=== PATIENT | male | born 1995 | race Two or more races ===

== ENCOUNTER 2019-05-26 18:58 | Emergency (ER) | payer MEDICAID, OTHER ==
[~2019-05-26] VITALS: Ht 175.3 cm; Wt 90.7 kg
[2019-05-26 19:25] VITALS: BP 144/84
[2019-05-26] MEDS ORDERED: METHOCARBAMOL 500 MG TAB PO ONE (22:45)
[2019-05-26] MEDS ORDERED: IBUPROFEN 800 MG TAB PO ONE (22:45)
== END 2019-05-26 22:45 | disposition home or self-care (01) ==
LOC: ER 19:04
DX: M54.5 Low back pain (principal); F17.210 Nicotine dependence, cigarettes, uncomplicated
CPT/HCPCS: 72100